=== PATIENT | female | born 1995 | race Caucasian/White ===

== ENCOUNTER 2020-02-28 02:57 | Observation (INO) | payer OTHER, SELFPAY ==
--- NOTE | 2020-02-28 08:00 | PM.OBTRLD ---
OB - Triage/Final Diagnosis Final Diagnosis (1) False labor after 37 completed weeks of gestation: Code(s): O47.1 - False labor at or after 37 completed weeks of gestation Status: Acute
== END 2020-02-28 06:06 | disposition home or self-care (01) ==
PROVIDERS: Admitting Provider Obstetrics & Gynecology; Visit Provider Obstetrics & Gynecology
DX: O47.1 False labor at or after 37 completed weeks of gestation (principal); Z3A.37 37 weeks gestation of pregnancy
CPT/HCPCS: G0378; G0379

== ENCOUNTER 2020-03-13 11:47 | Inpatient (IN) | payer OTHER, SELFPAY ==
[2020-03-13] VITALS (126 sets, daily range): BP systolic 82–121; BP diastolic 37–92; PULSE 39–119; RESP 16; TEMP 36–36.7; O2SAT 79–100; BMI 30.4
[2020-03-13 12:36] LABS: Basophils Percent Auto 0.2 % (0.2-1.2); Eosinophils Percent Auto 0.7 % (0-4.4); Hematocrit 28.7 % (37.0-47.0); Hemoglobin 8.8 g/dL (12.0-15.0); Immature Granulocyte Absolute 0.06 K/mm3 (0.00-0.031); Lymphocytes Percent Auto 24.6 % (18.3-44.2); Mean Corpuscular HGB Conc 30.7 g/dl (32-36); Mean Corpuscular Hemoglobin 23.5 pg (26-34); Mean Corpuscular Volume 76.5 fl (80-100); Mean Platelet Volume 10.5 fl (7.4-10.4); Monocytes Absolute Auto 0.4 K/mm3 (0.1-0.6); Monocytes Percent Auto 5.7 % (2.6-8.5); Neutrophils Absolute Auto 4.1 K/mm3 (1.3-6.7); Neutrophils Percent Auto 67.8 % (45.5-73.1); Nucleated Red Blood Cells Perc 0.3 % (0.0-0.2); Platelet Count Result 236 k/mm3 (150-375); Red Blood Count 3.75 M/mm3 (4.2-5.4); Red Cell Distribution Width 15.4 % (11.5-14.5); White Blood Count 6.1 K/mm3 (4.5-10.0)
[2020-03-13] MEDS: AMPICILLIN 2 GM/NS 100 ML 2 GM/100 ML BAG IVPB (12:47)
[2020-03-13] MEDS: LACTATED RINGERS 1,000 ML 125 ML IV CONT ×2 (12:48→15:04)
--- NOTE | 2020-03-13 13:03 | LDADM ---
This patient, Debbie Mathew, was admitted to Labor/Delivery/Recovery 106 on 03/13/20 at 11:47. Plans for labor, pain management and were discussed with patient. Patient/family oriented to hospital policies and general routines including ID bracelet, bed and alarms, visiting hours, pain management, procedures, bathroom and other care routines, personal items, smoking policy, room service/diet and guest tray routines, infant security routines, and visiting hours. Patient/Family are encouraged to report perceived risks to care and to ask questions if they do not understand what they are told or what they should do. See OBIX for further documentation.
--- NOTE | 2020-03-13 13:32 | WPDANESEPP ---
Anes - Eval Pre Procedure Procedure: labor epidural Date/Time: 03/13/20 13:32 Surgeon: Graciela Preop Diagnosis: Pain During Labor Pre Op Diagnosis: leaking Patient Data Age: 24 Gender: F Height: 5 ft 4 in Weight: 80.45 kg Last Vital Signs Temp 36.3 C L 03/13/20 12:15 Allergies Allergy/AdvReac Type Severity Reaction Status Date / Time No Known Allergies Allergy Verified 02/14/20 15:50 Home Medications Medication Instructions Recorded Confirmed Type PNV cmb#95-ferrous fumarate-FA 1 tablet PO DAILY 02/14/20 02/14/20 History [] famotidine 20 mg PO BID 02/14/20 02/14/20 History ferrous sulfate 325 mg PO QID 02/14/20 02/14/20 History Laboratory Tests 03/13/20 03/13/20 12:18 12:18 WBC 6.1 K/mm3 K/mm3 (4.5-10.0) RBC 3.75 M/mm3 L M/mm3 (4.2-5.4) Hgb 8.8 g/dL L g/dL (12.0-15.0) Hct 28.7 % L % (37.0-47.0) MCV 76.5 fl L fl (80-100) MCH 23.5 pg L pg (26-34) MCHC 30.7 g/dl L g/dl (32-36) RDW 15.4 % H % (11.5-14.5) Plt Count 236 k/mm3 k/mm3 (150-375) MPV 10.5 fl H fl (7.4-10.4) Immature Gran % (Auto) 1.0 % H % (0-0.5) Neut % (Auto) 67.8 % % (45.5-73.1) Lymph % (Auto) 24.6 % % (18.3-44.2) [place] % (Auto) 5.7 % % (2.6-8.5) Eos % (Auto) 0.7 % % (0-4.4) Baso % (Auto) 0.2 % % (0.2-1.2) Lymph # (Auto) 1.50 K/mm3 K/mm3 (0.9-3.2) [place] # (Auto) 0.4 K/mm3 K/mm3 (0.1-0.6) Eos # (Auto) 0.0 K/mm3 K/mm3 (0-0.3) Baso # (Auto) 0.0 K/mm3 K/mm3 (0.0-0.1) Abs Immat Gran (auto) 0.06 K/mm3 H K/mm3 (0.00-0.031) Absolute Neuts (auto) 4.1 K/mm3 K/mm3 (1.3-6.7) Absolute Nucleated RBC 0.0 K/mm3 K/mm3 (0.0-0.012) Nucleated RBC % 0.3 % H % (0.0-0.2) RPR Pending Patient hx anesthesia problems: none Family hx anesthesia problems: none [facility] Past Medical History Medical History (Updated 03/13/20 @ 13:34 by Anibal Shannon CRNA) Obese Family History Family History Father Diabetes mellitus Social History Social History Smoking status: Never smoker Second hand tobacco smoke exposure: No Substance use: never Spiritual care concerns: No Exam Day of Procedure 03/13/20 13:32 Patient weight: obese Heart: regular rate and rhythm Lungs: clear to auscultation and normal air movement Airway: Mallampati scale class II Neurological: alert and oriented
--- NOTE | 2020-03-13 14:22 | PM.IMHP ---
H&P: HPI History of Present Illness Date/Time: 03/13/20 14:22 Chief complaint: leaking Narrative: Debbie Mathew is a 24 y/o HF, , with pmhx MTHFR and GBS presents at 39 weeks and 4 days with spontaneous rupture of membranes and spontaneous onset of labor 3cm dilated Review of Systems Review of Systems: All systems reviewed & are unremarkable except as noted in HPI and below Constitutional: Constitutional: Reports no additional constitutional complaints Eyes: Eyes: Reports no additional eye complaints ENT: Reports system reviewed and no additional complaints, except as documented Cardiovascular: Cardiovascular: Reports no additional cardiovascular complaints Respiratory: Respiratory: Reports no additional respiratory complaints Gastrointestinal: Gastrointestinal: Reports no additional gastrointestinal complaints Genitourinary: Genitourinary: Reports no additional female genitourinary complaints Musculoskeletal: Musculoskeletal: Reports no additional musculoskeletal complaints Integumentary/Breasts: Skin/Breast: Reports system reviewed and no additional complaints, except as docu Neurologic: Reports system reviewed and no additional complaints, except as documented Psychiatric: Psychiatric: Reports no additional psychiatric complaints Endocrine: Endocrine: Reports no additional endocrine complaints Hematologic/Lymphatic: Hematologic/Lymphatic: Reports no additional hematologic/lymphatic complaints Allergic/Immunologic: Allergic/Immunologic: Reports no additional allergic/immunologic complaints PMFSH Past Medical History Medical History (Updated 03/13/20 @ 14:44 by Nimesh Owens MD) Anemia affecting GBS (group B Streptococcus carrier), +RV culture, currently Heterozygous MTHFR mutation [id number] Obese Rubella non-immune status, antepartum Vaginal delivery 03/18/2016 8-14 male 10/01/2018 8-9 male Family History Family History Father Diabetes mellitus Social History Social History (Updated 03/13/20 @ 14:46 by Nimesh Owens MD) Smoking status: Never smoker Second hand tobacco smoke exposure: No Alcohol intake: never Substance use: never Substance use type: does not use Living arrangements: with family Occupation/Education: occupation 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; 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; Gender identity (if verbalized by the patient): Female Sexual Orientation (if Verbalized by the Patient): Straight or Heterosexual Spiritual care concerns: No Agree to blood products: Yes Meds Home Medications and Allergies Home Medications Medication Instructions Recorded Confirmed Type PNV cmb#95-ferrous fumarate-FA 1 tablet PO DAILY 02/14/20 02/14/20 History [] famotidine 20 mg PO BID 02/14/20 02/14/20 History ferrous sulfate 325 mg PO QID 02/14/20 02/14/20 History Allergies Allergy/AdvReac Type Severity Reaction Status Date / Time No Known Allergies Allergy Verified 02/14/20 15:50 Vital Signs Vital Signs - 24 hr 03/13/20 12:15 03/13/20 13:36 03/13/20 13:38 Temperature 97.3 F L Pulse Rate 85 81 Blood Pressure 116/63 112/70 Pulse Oximetry 99 03/13/20 13:39 03/13/20 13:40 03/13/20 13:41 Temperature Pulse Rate 92 77 Blood Pressure 116/57 L 116/70 Pulse Oximetry 100 03/13/20 13:42 03/13/20 13:44 03/13/20 13:45 Temperature Pulse Rate 86 84 84 Blood Pressure 117/67 88/55 L 113/62 Pulse Oximetry 03/13/20 13:46 03/13/20 13:48 03/13/20 13:50 Temperature 97.4 F L Pulse Rate 90 93 Blood Pressure 108/59 L 113/51 L Pulse Oximetry 99 03/13/20 13:51 03/13/20 13:52 03/13/20 13:54 Temperature Pulse Rate 84 114 H 85 Blood Pressure 106/60 93/54 L 105/37 L Pulse Oximetry 100 03/13/20 13:56 03/13/20 13:58 03/13/20 14:00 Temperature Pulse Rate 89 88 97 Blood Pressure 106/55 L 116/7
--- NOTE | 2020-03-13 14:49 | WPDHPUPDATE1 ---
History and Physical Update Update Date/Time: 03/13/20 14:49 History and Physical has been reviewed, including an updated exam of the patient. There are NO changes in the patient's condition. Risks, benefits, and alternatives have been discussed and questions answered. Patient agrees to proceed with procedure. 24 y/o F, , with pmhx MTHFR and GBS presents for SROM and SOOL at 39 weeks and 4 days
--- NOTE | 2020-03-13 14:50 | WPDOBADMIT ---
Obstetrics - Admit Note Admission Note: record reviewed. No pertinent additions to the history and/or any subsequent changes in the physical findings that are not consistent with the expected course of the were found. Additions to the history and/or subsequent changes in the physical findings follow. None. 24 y/o F, , with pmhx MTHFR and GBS presents for SROM and SOOL at 39weeks and 4days FHT cat 1 cervix 3 cm
--- NOTE | 2020-03-13 14:51 | PM.OBPNLAB ---
Pain Control Date/time seen: 03/13/20 14:51 Pain control: tolerating well and epidural Pelvic Exam Dilation (cm): 3 Effacement (%): 75 station: -2 Amniotic membrane status: Ruptured Comments: FSE and IUPC placed without difficulty Contractions Monitor mode: External Contraction frequency: 10 Contraction duration: 40 Contraction pattern: Irregular Contraction intensity: Mild Status status: Category l Assessment and Plan Assessment: other (LATENT PHASE) Plan: begin patient augmentation
[2020-03-13] MEDS: OXYTOCIN 30 UNITS/NS 500 ML 30 UNITS/500 ML BAG IV CONT (15:02)
[2020-03-13] MEDS: AMPICILLIN 1 GM/NS 50 ML 1 GM/50 ML BAG IVPB (17:01)
--- NOTE | 2020-03-13 20:01 | PM.OBPNLAB ---
Pain Control Date/time seen: 03/13/20 18:01 Pain control: tolerating well and epidural Pelvic Exam Dilation (cm): 8 Effacement (%): 100 station: 0 Amniotic membrane status: Ruptured Contractions Monitor mode: Internal Contraction frequency: 2 Contraction pattern: Regular Contraction phase: Contraction Contraction intensity: Strong/Firm Status status: Category l Assessment and Plan Pitocin rate (mU/min): 14 Assessment: active labor Plan: continuous present management
--- NOTE | 2020-03-13 20:02 | PM.OBPRVD ---
OB - Delivery Note Procedure Delivery date: 03/13/20 Procedure: NSVVD viable female and placenta Intrapartal events: None Induction method: none Delivery augmentation: pitocin Delivery monitor: internal FHT and internal uterine Route of delivery: Laceration description: Perineal - 1st Degree Delivery repair: vicryl Specimen: Yes Estimated blood loss (mL): 150 Anesthesia type: Epidural Disposition: floor Complications: none Narrative: Patient placed in delivery position perineum prepped normal spontaneous vertex vaginal delivery over intact perineum vertex was delivered without difficulty anterior shoulder delivered easily infant was delivered and placed on maternal abdomen cord clamped and cut having handed to the nursery nurse in attendance spontaneous respirations and cry no gross abnormalities initial examination cord gases cord blood obtained placenta was then delivered intact three-vessel cord the uterus contracted well with Pitocin given intravenously blood clots removed from the intrauterine cavity first-degree perineal laceration was repaired interrupted 2 0 Vicryl deep 3 0 Vicryl as interrupted superficial and perineal body mom and baby in stable condition Baby Date of : 03/13/20 Time of : 19:41 Weeks of gestation at delivery: 40 Infant gender: Female Weight (pounds): 7 Weight (ounces): 11 presentation: vertex position: Left Occiput Transverse Placenta delivery description: Spontaneous and Normal Configuration cord vessel description: 3 Vessels score one minute: 8 score five minutes: 9
--- NOTE | 2020-03-13 20:07 | PM.OBDSVD ---
DS: Admitting Diagnosis Admitting Diagnosis Admitting Diagnosis: leaking term SROM SOOL GBS+ DS: Discharge Diagnosis Discharge Diagnosis (1) Term delivered: Code(s): O80 - Encounter for full-term uncomplicated delivery Status: Acute (2) Rubella non-immune status, antepartum: Code(s): O99.89 - Other specified diseases and conditions complicating , childbirth and the puerperium; Z28.3 - Underimmunization status Status: Acute (3) Anemia affecting : Code(s): O99.019 - Anemia complicating , unspecified trimester Status: Acute (4) Spontaneous onset of labor: Status: Acute (5) GBS (group B Streptococcus carrier), +RV culture, currently : Code(s): O99.820 - Streptococcus B carrier state complicating Status: Acute (6) Heterozygous MTHFR mutation [id number]: Code(s): E72.12 - Methylenetetrahydrofolate reductase deficiency Status: Acute OB - DS: Summary Hospital Course Time spent discussing smoking cessation with patient: 3 to 10 minutes OB Procedures : Ultrasound OB Procedures Intrapartum: Spontaneous Vag Delivery and GBS prophylaxis OB Procedures: : Rubella lg Peripartum Data Delivery Method: Natural Vaginal Laceration description: Perineal - 1st Degree complications: none 1: Gender: Female Disposition of : home Status at Discharge Functional status at discharge: independent ambulation Overall status at discharge: patient is back to baseline Time Spent with Patient Time attestation: Total time spent providing and/or coordinating discharge services: Time spent: Less than 30 minutes Exam Const: General: comfortable, no acute distress, alert and awake Orientation/consciousness: patient oriented x3 Limitations: no limitations Chest: Breast/axilla inspection: normal inspection of the breasts Breast/axilla palpation: normal palpation of the breasts Resp: Effort & Inspection: normal respiratory effort Auscultation: clear to auscultation bilaterally Cardio: Rate: regular rate GI: GI Palp: Yes Soft to palpation Percussion: Yes normal to percussion Auscultation: normal bowel sounds : General: Yes bladder normal to inspection and Yes no CVA tenderness Psych: Appearance: grossly normal Mental Status: mental status grossly normal Affect: normal affect Attitude: cooperative Thought content: Yes Normal thought content present Judgement: Good judgement present (Psych) DS: Data Data Completed and Pending Labs on day of discharge: Labs from last 24 hours 03/13/20 03/13/20 03/13/20 12:18 12:18 12:18 WBC 6.1 RBC 3.75 L Hgb 8.8 L Hct 28.7 L MCV 76.5 L MCH 23.5 L MCHC 30.7 L RDW 15.4 H Plt Count 236 MPV 10.5 H Immature Gran % (Auto) 1.0 H Neut % (Auto) 67.8 Lymph % (Auto) 24.6 [place] % (Auto) 5.7 Eos % (Auto) 0.7 Baso % (Auto) 0.2 Lymph # (Auto) 1.50 [place] # (Auto) 0.4 Eos # (Auto) 0.0 Baso # (Auto) 0.0 Abs Immat Gran (auto) 0.06 H Absolute Neuts (auto) 4.1 Absolute Nucleated RBC 0.0 Nucleated RBC % 0.3 H RPR Pending Blood Type A Positive Antibody Screen Negative Discharge Plan Discharge Attending physician on discharge: Nimesh Owens Discharging Clinician: Nimesh Owens Anticipated Discharge Date/Time: 03/15/20 20:10 Patient Disposition: Home, Self-Care Activity: may shower, no straining and may drive after 2 weeks Diet: as tolerated and regular Wound Care Instructions: follow printed instructions Discharge Instructions: routine Patient Instructions: Antibiotic Form Stand Alone Forms: General Discharge Information Follow-up/Referrals: Nimesh Owens MD [Physician] - Discharge Medications: New ibuprofen 600 mg Tablet 600 mg PO Q6H Qty: 90 RF: 0 Continued famotidine 20
[2020-03-13] MEDS: OXYTOCIN 30 UNITS/NS 500 ML 30 UNITS/500 ML BAG 125 UNITS IV CONT (20:15)
[2020-03-13] MEDS: IBUPROFEN 600 MG TABLET PO (21:17)
[2020-03-13] MEDS: WITCH HAZEL 40 PADS 1 PAD TOPICAL (21:17)
[2020-03-13] MEDS: BENZOCAINE 20% AER SPR (*SP) 56 GM CAN 1 SPRAY TOPICAL (21:18)
--- NOTE | 2020-03-13 22:13 | PC.NURSE ---
Addendum entered by Carmen Dong RN 03/14/20 00:38: Patient transferred to post room #284 via wheelchair. Original Note: Patient transferred to post room #284 via stretcher. Support person present. Oriented to unit, room, information board, rooming in, admission packet and security measures. Patient verbalizes understanding.
[2020-03-14] MEDS: IBUPROFEN 600 MG TABLET PO ×3 (02:53→16:30)
[2020-03-14 04:53] LABS: Hematocrit 25.5 % (37.0-47.0); Hemoglobin 7.9 g/dL (12.0-15.0)
--- NOTE | 2020-03-14 06:57 | P.PNOB_ITS ---
OB - PN: Subj Subjective Date/time seen: 03/14/20 06:57 Interval history: ppd#1 s/p nsvvd female Patient comments: no complaints, pain well controlled, tolerating diet and flatus present baby status: doing well and nursing well [place] feeding status: exclusively breast feeding OB - PN: Obj Data Labs CBC & Chem 7: 03/14/20 04:44 Labs: Laboratory Results - last 24 hr 03/13/20 03/13/20 03/14/20 12:18 12:18 04:44 WBC 6.1 RBC 3.75 L Hgb 8.8 L 7.9 L Hct 28.7 L 25.5 L MCV 76.5 L MCH 23.5 L MCHC 30.7 L RDW 15.4 H Plt Count 236 MPV 10.5 H Immature Gran % (Auto) 1.0 H Neut % (Auto) 67.8 Lymph % (Auto) 24.6 [place] % (Auto) 5.7 Eos % (Auto) 0.7 Baso % (Auto) 0.2 Lymph # (Auto) 1.50 [place] # (Auto) 0.4 Eos # (Auto) 0.0 Baso # (Auto) 0.0 Abs Immat Gran (auto) 0.06 H Absolute Neuts (auto) 4.1 Absolute Nucleated RBC 0.0 Nucleated RBC % 0.3 H Blood Type A Positive Antibody Screen Negative OB - PN A/P Assessment and Plan (1) Term delivered: Code(s): O80 - Encounter for full-term uncomplicated delivery Status: Acute (2) Anemia affecting : Code(s): O99.019 - Anemia complicating , unspecified trimester Status: Acute (3) GBS (group B Streptococcus carrier), +RV culture, currently : Code(s): O99.820 - Streptococcus B carrier state complicating Status: Acute (4) Heterozygous MTHFR mutation [id number]: Code(s): E72.12 - Methylenetetrahydrofolate reductase deficiency Status: Acute Time Spent With Patient Time: Total time spent is greater than 50% in coordination of care (as docum ented) at patient's floor/unit and/or counseling patient:15 Review of Systems Review of Systems: All systems reviewed & are unremarkable except as noted in HPI and below Exam Const: General: comfortable, no acute distress, alert and awake Orientation/consciousness: patient oriented x3 Chest: Breast/axilla inspection: normal inspection of the breasts Resp: Effort & Inspection: normal respiratory effort Auscultation: clear to auscultation bilaterally Cardio: Rate: regular rate GI: Auscultation: normal bowel sounds : General: Yes bladder normal to inspection and Yes no CVA tenderness Bimanual exam- vagina & uterus: consistency normal and non-tender Psych: Appearance: grossly normal Mental Status: mental status grossly normal Affect: normal affect Attitude: cooperative Judgement: Good judgement present (Psych)
--- NOTE | 2020-03-14 07:00 | PM.OBDSVD ---
DS: Admitting Diagnosis Admitting Diagnosis Admitting Diagnosis: leaking term spontaneous onset of labor spontaneous rupture of membranes GBS+ anemia MTHFR rubella non immune DS: Discharge Diagnosis Discharge Diagnosis (1) Term delivered: Code(s): O80 - Encounter for full-term uncomplicated delivery Status: Acute (2) Rubella non-immune status, antepartum: Code(s): O99.89 - Other specified diseases and conditions complicating , childbirth and the puerperium; Z28.3 - Underimmunization status Status: Acute (3) Anemia affecting : Code(s): O99.019 - Anemia complicating , unspecified trimester Status: Acute (4) Spontaneous onset of labor: Status: Acute (5) Term : Code(s): Z34.90 - Encounter for supervision of normal , unspecified, unspecified trimester Status: Acute (6) GBS (group B Streptococcus carrier), +RV culture, currently : Code(s): O99.820 - Streptococcus B carrier state complicating Status: Acute (7) Heterozygous MTHFR mutation [id number]: Code(s): E72.12 - Methylenetetrahydrofolate reductase deficiency Status: Acute OB - DS: Summary Hospital Course Time spent discussing smoking cessation with patient: 3 to 10 minutes OB Procedures : Ultrasound OB Procedures Intrapartum: Spontaneous Vag Delivery OB Procedures: : None Peripartum Data Delivery Method: Natural Vaginal Laceration description: Perineal - 1st Degree Episiotomy description: None complications: none [place] 1: Gender: Female Disposition of : home Status at Discharge Functional status at discharge: independent ambulation Overall status at discharge: patient is progressing back to baseline Time Spent with Patient Time attestation: Total time spent providing and/or coordinating discharge services: Time spent: Less than 30 minutes Exam Const: General: comfortable, no acute distress, alert and awake Orientation/consciousness: patient oriented x3 Limitations: no limitations Chest: Breast/axilla inspection: normal inspection of the breasts Breast/axilla palpation: normal palpation of the breasts Resp: Effort & Inspection: normal respiratory effort Auscultation: clear to auscultation bilaterally Cardio: Rate: regular rate GI: GI Palp: Yes Soft to palpation : General: Yes bladder normal to inspection and Yes no CVA tenderness Psych: Appearance: grossly normal Mental Status: mental status grossly normal Affect: normal affect Attitude: cooperative Thought content: Yes Normal thought content present Judgement: Good judgement present (Psych) DS: Data Data Completed and Pending Pending studies at discharge: Pending at discharge 03/13/20 19:44 Surgical [PTH] Routine Labs on day of discharge: Labs from last 24 hours 03/14/20 03/13/20 03/13/20 04:44 12:18 12:18 WBC RBC Hgb 7.9 L Hct 25.5 L MCV MCH MCHC RDW Plt Count MPV Immature Gran % (Auto) Neut % (Auto) Lymph % (Auto) [place] % (Auto) Eos % (Auto) Baso % (Auto) Lymph # (Auto) [place] # (Auto) Eos # (Auto) Baso # (Auto) Abs Immat Gran (auto) Absolute Neuts (auto) Absolute Nucleated RBC Nucleated RBC % RPR Pending Blood Type A Positive Antibody Screen Negative 03/13/20 12:18 WBC 6.1 RBC 3.75 L Hgb 8.8 L Hct 28.7 L MCV 76.5 L MCH 23.5 L MCHC 30.7 L RDW 15.4 H Plt Count 236 MPV 10.5 H Immature Gran % (Auto) 1.0 H Neut % (Auto) 67.8 Lymph % (Auto) 24.6 [place] % (Auto) 5.7 Eos % (Auto) 0.7 Baso % (Auto) 0.2 Lymph # (Auto) 1.50 [place] # (Auto) 0.4 Eos # (Auto) 0.0 Baso # (Auto) 0.0 Abs Immat Gran (auto) 0.06 H Absolute Neuts (auto) 4.1 Absolute Nucleated RBC 0.0 Nucleated RBC % 0.3 H RPR Blood Type Antibody Screen Discharge [place]
[2020-03-14] MEDS: DOCUSATE SODIUM 100 MG CAPSULE PO ×2 (07:10→16:29)
[2020-03-14] MEDS: POLYSACCHARIDE IRON COMPLEX 150 MG CAPSULE PO ×2 (07:10→16:30)
[2020-03-14] MEDS: MULTIVIT/MIN/PREN/FOL AC/IRON TABLET 1 TAB PO (07:10)
[2020-03-14] MEDS: WITCH HAZEL 40 PADS 1 PAD TOPICAL (07:11)
[2020-03-14 07:44] VITALS: BP 124/84; PULSE 76; RESP 18; TEMP 36.4
--- NOTE | 2020-03-14 07:58 | WPDANLDPN2 ---
Anes-Prog Note L&D Date/Time: 03/14/20 07:58 Comfortable throughout: labor and delivery Neuraxial method: epidural Epidural/Spinal procedure site: clean & non-tender Neuro status: Neuro function grossly intact. Cardiovascular status: normal Respiratory status: normal Airway patency: baseline Mental status: baseline Post-Op hydration status: normal Vital Signs: Last Vital Signs Temp 97.6 F 03/14/20 07:44 Pulse 76 03/14/20 07:44 Resp 18 03/14/20 07:44 BP 124/84 03/14/20 07:44 Pulse Ox 100 03/13/20 22:15 I/O: Intake & Output 03/13/20 03/13/20 03/14/20 15:59 23:59 07:59 Intake Total 1100 Output Total 300 Balance 1100 -300 Post-procedural complaints: none Patient feedback: Patient satisfied with anesthetic care.
[2020-03-14 08:50] LABS: Rapid Plasma Reagin Non-Reactive (NonReactive)
--- NOTE | 2020-03-14 14:20 | PC.NURSE ---
Upon entering mother is bottle feeding reporting infant would not maintain latch to right breast. Offered to assist to breast at this time. Reviewed infant feeding cues, frequencies, duration of feedings, feeding elimination flow sheet, and signs of adequate intake. Demonstrated stimulation techniques to wake infant for feeding. Assisted with to breast. Reviewed positioning/alignment in cross cradle, holding breast in U hold and guided asymmetrical latch on. Discussed rational for each. Mother reports she has been using cradle positioning for latch. was able to latch correctly. nursed eagerly, with steady draws and frequent swallowing noted. Reviewed signs of a correct latch, effective nursing and suck swallow ratio. was able to maintain latch without discomfort to mother for aprox. 5 minutes, before releasing latch. Infant was bottle fed 25 mls before . Nipple care reviewed. Mother reports she had less tenderness with feedings. Requested mother to call out for RN assistance each feeding if she is unable to latch infant for feeding or she has discomfort with nursing. Instructed feeding should be initiated three hours from start of last feeding or if feeding cues are noted before. Mother voiced understanding of information shared.
[2020-03-14 19:45] VITALS: BP 96/59; PULSE 73; RESP 16; TEMP 36.6; O2SAT 100
[2020-03-15] MEDS: IBUPROFEN 600 MG TABLET PO ×3 (04:55→14:19)
[2020-03-15 07:55] VITALS: BP 108/60; PULSE 71; RESP 16; TEMP 37.2; O2SAT 99
--- NOTE | 2020-03-15 08:18 | PM.OBPNVD ---
OB - PN: Subj Subjective Date/time seen: 03/15/20 08:18 Interval history: ppd#1 s/p nsvvd female Patient comments: no complaints, pain well controlled and flatus present [place] baby status: doing well and nursing well [place] feeding status: exclusively breast feeding OB - PN: Obj Data Labs CBC & Chem 7: 03/14/20 04:44 Labs: Laboratory Results - last 24 hr 03/13/20 12:18 RPR Non-reactive OB - PN A/P Assessment and Plan (1) Term delivered: Code(s): O80 - Encounter for full-term uncomplicated delivery Status: Acute (2) Anemia affecting : Code(s): O99.019 - Anemia complicating , unspecified trimester Status: Acute (3) Spontaneous onset of labor: Status: Acute (4) GBS (group B Streptococcus carrier), +RV culture, currently : Code(s): O99.820 - Streptococcus B carrier state complicating Status: Acute (5) 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: Code(s): E72.12 - Methylenetetrahydrofolate reductase deficiency Status: Acute (6) Rubella non-immune status, antepartum: Code(s): O99.89 - Other specified diseases and conditions complicating , childbirth and the puerperium; Z28.3 - Underimmunization status Status: Acute Time Spent With Patient Time: Total time spent is greater than 50% in coordination of care (as documented) at patient's floor/unit and/or counseling patient: Review of Systems Review of Systems: All systems reviewed & are unremarkable except as noted in HPI and below Exam Const: General: comfortable Chest: Breast/axilla inspection: normal inspection of the breasts Resp: Effort & Inspection: normal respiratory effort Cardio: Rate: regular rate GI: Auscultation: normal bowel sounds : General: Yes bladder normal to inspection Psych: Appearance: grossly normal Affect: normal affect Attitude: cooperative
[2020-03-15] MEDS: MULTIVIT/MIN/PREN/FOL AC/IRON TABLET 1 TAB PO (10:13)
[2020-03-15] MEDS: POLYSACCHARIDE IRON COMPLEX 150 MG CAPSULE PO (10:13)
[2020-03-15] MEDS: DOCUSATE SODIUM 100 MG CAPSULE PO (10:14)
--- NOTE | 2020-03-15 13:00 | PC.NURSE ---
Consult with pt., mother states she has decided to formula feed. Reviewed transition to breast milk and engorgement/relief. Mother has no further questions at this time.
[2020-03-16 10:23] VITALS: BP 106/60; PULSE 71; RESP 20; TEMP 36.8; O2SAT 100
== END 2020-03-15 15:43 | disposition home or self-care (01) | DRG 560 ==
LOC: ANHLDR 20:12 → ANHOB2 22:20
PROVIDERS: Admitting Provider Obstetrics & Gynecology; Visit Provider Obstetrics & Gynecology
DX: O62.3 Precipitate labor (principal); Z37.0 Single live birth; Z3A.39 39 weeks gestation of pregnancy; O99.824 Streptococcus B carrier state complicating childbirth; O70.0 First degree perineal laceration during delivery; O99.02 Anemia complicating childbirth; D64.9 Anemia, unspecified; O99.214 Obesity complicating childbirth; E66.9 Obesity, unspecified; O99.284 Endocrine, nutritional and metabolic diseases complicating childbirth; E72.12 Methylenetetrahydrofolate reductase deficiency
CPT/HCPCS: 36415; 85014; 85018; 85025; 86592; 86850; 86900; 86901; 88307; A9270; J0290; J2590; J2795; J7120

== ENCOUNTER 2021-07-03 15:41 | Emergency (ER) | payer OTHER, SELFPAY ==
[2021-07-03 15:42] VITALS: BP 110/66; PULSE 77; RESP 20; TEMP 36.4; O2SAT 99
[2021-07-03 17:30] VITALS: BP 107/65; PULSE 71; RESP 14; O2SAT 99
--- NOTE | 2021-07-03 21:07 | ED.GENADULT ---
HPI - General Adult General Chief complaint: Ear Stated complaint: Cant hear out L ear Time Seen by Provider: 07/03/21 21:04 Source: patient Mode of arrival: ambulatory Limitations: no limitations History of Present Illness HPI narrative: Pt presents for evaluation of left ear pain. She states that three days ago she was cleaning her left ear with a Q tip. The following day she woke up in pain. She developed hearing loss on the left with associated ringing. She cleaned her left ear out with hot water and 1/2 H2O2. She was still unable to hear thereafter. No drainage from the left ear. She reports chills without fever. She now has 8/10 pain in the affected ear. Pain radiates into the left preauricular region and mandible. Related Data Home Medications Medication Instructions Recorded Confirmed PNV cmb#95-ferrous fumarate-FA 1 tablet PO DAILY 02/14/20 02/14/20 [] famotidine 20 mg PO BID 02/14/20 02/14/20 ferrous sulfate 325 mg PO QID 02/14/20 02/14/20 Allergies Allergy/AdvReac Type Severity Reaction Status Date / Time No Known Allergies Allergy Verified 02/14/20 15:50 Review of Systems Review of Systems: CONSTITUTIONAL: Denies fever, chills, or sweats. EYES: Denies visual changes, redness, or discharge. ENT: Reports left ear pain, tinnitus, hearing loss. Denies drainage from left ear CARDIOVASCULAR: Denies chest pain, palpitations, or edema. RESPIRATORY: Denies cough or dyspnea. GASTROINTESTINAL: Denies abdominal pain, nausea, vomiting, or diarrhea. GENITOURINARY: Denies dysuria or hematuria. SKIN: Denies rash or itching. MUSCULOSKELETAL: Denies back pain, joint pain, or myalgia. NEUROLOGIC: Denies headache, numbness, dizziness, or weakness. PSYCHIATRIC: Denies anxiety or depression. [facility] Past Medical History Medical History (Updated 07/03/21 @ 21:19 by Adam Aden, [facility], ) Anemia affecting GBS (group B Streptococcus carrier), +RV culture, currently Heterozygous MTHFR mutation [id number] Obese Rubella non-immune status, antepartum Vaginal delivery 03/18/2016 8-14 male 10/01/2018 8-9 male Surgical History Surgical History No pertinent past surgical history Family History Family History Father Diabetes mellitus Mother No pertinent past medical history Social History Social History Smoking status: Never smoker Second hand tobacco smoke exposure: No Alcohol intake: never Substance use: never Substance use type: does not use 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 HEAD: Normocephalic, atraumatic. EYES: PERRLA and EOMI. ENT: Nares clear, no rhinorrhea or epistaxis. Mucous membranes moist. Oropharynx without tonsillar hypertrophy exudate or other lesions. Left ear canal is edematous and erythematous. Tympanic membrane appears perforated NECK: Supple. No adenopathy or masses. No carotid bruits or JVD CHEST: Clear to auscultation. No respiratory distress. No wheezes rales or rhonchi HEART: Regular rate and rhythm. No murmur heard. Normal peripheral pulses. ABDOMEN: Soft, nontender, nondistended, normal active bowel sounds. EXTREMITIES: Normal range of motion. No edema. SKIN: Warm, dry, no rash. NEURO: No focal deficits. Alert and oriented x3. PSYCH: Normal mood and affect. Course Course Emergency Course: Is a 25-year-old female who presented with complaints of left ear pain following routine ear care with Q tip. She had swelling noted to the left ear c
[2021-07-03 21:12] VITALS: BP 126/71; PULSE 88; RESP 16; O2SAT 100
[2021-07-03] MEDS: KETOROLAC (*BKC) 60 MG/2 ML VIAL IM (21:33)
== END 2021-07-03 21:49 | disposition home or self-care (01) ==
LOC: ANHED 21:29
PROVIDERS: Emergency Provider Nurse Practitioner
DX: H60.92 Unspecified otitis externa, left ear (principal); H72.92 Unspecified perforation of tympanic membrane, left ear
CPT/HCPCS: 96372; 99283; J1885

== ENCOUNTER 2022-04-16 17:29 | Emergency (ER) | payer OTHER, SELFPAY ==
[2022-04-16 17:45] VITALS: BP 111/68; PULSE 106; RESP 18; TEMP 38.2; O2SAT 100
--- NOTE | 2022-04-16 19:04 | ED.URI ---
HPI - URI/Sore Throat General Chief Complaint: Upper Respiratory Infection Stated Complaint: strep test Time Seen by Provider: 04/16/22 19:00 Source: patient, RN notes reviewed and old records reviewed Mode of arrival: ambulatory Limitations: no limitations History of Present Illness HPI Narrative: both children strep and ear infection, sore throat feverish cough MD elicited complaint: fever, cough and sore throat Related Data Allergies Allergy/AdvReac Type Severity Reaction Status Date / Time No Known Allergies Allergy Verified 04/16/22 18:53 Review of Systems Review of Systems: CONSTITUTIONAL: Denies malaise, chills, sweats, or fever. EYES: Denies visual changes, redness, or discharge. ENT: Reports rhinorrhea, congestion, sinus pain, otalgia and sore throat. CARDIOVASCULAR: Denies chest pain, palpitations, or edema. RESPIRATORY: Reports cough.? Denies dyspnea. GASTROINTESTINAL: Denies abdominal pain, nausea, vomiting, diarrhea SKIN: Denies rash or itching. MUSCULOSKELETAL: Denies myalgia. NEUROLOGIC: Denies headache. All systems reviewed & are unremarkable except as noted in HPI and below PMFSH Past Medical History Medical History Anemia affecting GBS (group B Streptococcus carrier), +RV culture, currently Heterozygous MTHFR mutation [id number] Obese Rubella non-immune status, antepartum Vaginal delivery 03/18/2016 8-14 male 10/01/2018 8-9 male Surgical History Surgical History No pertinent past surgical history Family History Family History Father Diabetes mellitus Mother No pertinent past medical history Social History Social History Smoking status: Never smoker Second hand tobacco smoke exposure: No Alcohol intake: never Substance use: never Substance use type: does not use 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 There is no relevant family history pertinent to the presenting complaint Exam Narrative: GENERAL: Well-appearing, well-nourished, and in no acute distress. HEAD: Normocephalic EYES: PERRLA, conjunctivae clear ENT: Nares clear, turbinates edematous and erythematous, clear discharge. Mucous membranes moist. TM pearly james with dull light reflex bilaterally; no tragal tenderness. Oropharynx erythematous without lesions. Tonsils not enlarged and without exudate, no drooling, no hoarseness, no trismus, uvula midline. NECK: Supple. No lymphadenopathy CHEST: Clear to auscultation, breath sounds equal. No wheezing, rhonchi, rales, or stridor. No respiratory distress, speaks in full sentences. HEART: Regular rate and rhythm. No murmur heard. SKIN: Warm, dry, no rash. NEURO: Alert and oriented x3. PSYCH: Normal mood and affect Course Course Emergency Course: Patient is aware of diagnosis, understands and agrees to treatment plan.? Anticipatory guidance given.? Patient agrees to follow-up as directed and is aware of reasons to seek care at the emergency department. Portions of this record may have been created with voice recognition software Level of Care: Express Care Visit Vital Signs Vital signs: Vital Signs Temperature 38.2 C H 04/16/22 17:45 Pulse Rate 106 H 04/16/22 17:45 Respiratory Rate 18 04/16/22 17:45 Blood Pressure 111/68 04/16/22 17:45 Pulse Oximetry 100 04/16/22 17:45 Oxygen Delivery Room Air 04/16/22 17:45 Temperature 38.2 C H 04/16/22 17:45 Pulse Rate 1
--- NOTE | 2022-04-16 19:21 | ED.URI ---
HPI - URI/Sore Throat General Chief Complaint: Upper Respiratory Infection Stated Complaint: strep test Time Seen by Provider: 04/16/22 19:00 Source: patient, RN notes reviewed and old records reviewed Mode of arrival: ambulatory Limitations: no limitations History of Present Illness HPI Narrative: 26 year old female presents to [facility] care with complaints of cough and sore throat with patient reporting that she is 6-7 weeks . Patient reports that 2 of her children have strep throat and OM and she is here to have strep test done too. Patient is febrile and has not taken any OTC medication for her fever or symptoms. MD elicited complaint: cough and sore throat Pertinent past history: other (6-7 weeks ) Onset (ago): day(s) (day 2 of symptoms) Treatments prior to arrival: none Related Data Allergies Allergy/AdvReac Type Severity Reaction Status Date / Time No Known Allergies Allergy Verified 04/16/22 18:53 Review of Systems Review of Systems: CONSTITUTIONAL: Reports malaise, chills, sweats, or fever. EYES: Denies visual changes, redness, or discharge. ENT: Reports rhinorrhea, congestion, sinus pain, otalgia and sore throat. CARDIOVASCULAR: Denies chest pain, palpitations, or edema. RESPIRATORY: Reports cough.? Denies dyspnea. GASTROINTESTINAL: Denies abdominal pain, nausea, vomiting, diarrhea SKIN: Denies rash or itching. MUSCULOSKELETAL: Denies myalgia. NEUROLOGIC: Denies headache. All systems reviewed & are unremarkable except as noted in HPI and below PMFSH Past Medical History Medical History Anemia affecting GBS (group B Streptococcus carrier), +RV culture, currently Heterozygous MTHFR mutation [id number] Obese Rubella non-immune status, antepartum Vaginal delivery 03/18/2016 8-14 male 10/01/2018 8-9 male Surgical History Surgical History No pertinent past surgical history Family History Family History Father Diabetes mellitus Mother No pertinent past medical history Social History Social History (Updated 04/19/22 @ 11:05 by Kathleen Nowak NP) Smoking status: Never smoker Second hand tobacco smoke exposure: No Alcohol intake: never Substance use: never Substance use type: does not use Living arrangements: with family 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 There is no relevant family history pertinent to the presenting complaint Exam Narrative: GENERAL: Well-appearing, well-nourished, and in no acute distress. HEAD: Normocephalic EYES: PERRLA, conjunctivae clear ENT: Nares clear, turbinates edematous and erythematous, clear discharge. Mucous membranes moist. TM pearly james with dull light reflex bilaterally; no tragal tenderness. Oropharynx erythematous without lesions. Tonsils minimally enlarged and without exudate, no drooling, no hoarseness, no trismus, uvula midline. NECK: Supple. No lymphadenopathy CHEST: Clear to auscultation, breath sounds equal. No wheezing, rhonchi, rales, or stridor. No respiratory distress, speaks in full sentences.SAO2 100% on room air HEART: Regular rate and rhythm. No murmur heard. SKIN: Warm, dry, no rash. NEURO: Alert and oriented x3. PSYCH: Normal mood and affect Course Course Emergency Course: Patient is aware of diagnosis, understands and agrees to treatment plan.? Anticipatory guidance given.? Patient agrees to follow-up as directed and is aware of reasons to seek care at the emergenc
--- NOTE | 2022-04-16 19:30 | ED.URI ---
HPI - URI/Sore Throat General Chief Complaint: Upper Respiratory Infection Stated Complaint: strep test Time Seen by Provider: 04/16/22 19:00 Source: patient, RN notes reviewed and old records reviewed Mode of arrival: ambulatory Limitations: no limitations Related Data Allergies Allergy/AdvReac Type Severity Reaction Status Date / Time No Known Allergies Allergy Verified 04/16/22 18:53 PMFSH Past Medical History Medical History Anemia affecting GBS (group B Streptococcus carrier), +RV culture, currently Heterozygous MTHFR mutation [id number] Obese Rubella non-immune status, antepartum Vaginal delivery 03/18/2016 8-14 male 10/01/2018 8-9 male Surgical History Surgical History No pertinent past surgical history Family History Family History Father Diabetes mellitus Mother No pertinent past medical history Social History Social History Smoking status: Never smoker Second hand tobacco smoke exposure: No Alcohol intake: never Substance use: never Substance use type: does not use 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; 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; Gender identity (if verbalized by the patient): Female Sexual Orientation (if Verbalized by the Patient): Straight or Heterosexual Spiritual care concerns: No Agree to blood products: Yes Course Vital Signs Vital signs: Vital Signs Temperature 38.2 C H 04/16/22 17:45 Pulse Rate 106 H 04/16/22 17:45 Respiratory Rate 18 04/16/22 17:45 Blood Pressure 111/68 04/16/22 17:45 Pulse Oximetry 100 04/16/22 17:45 Oxygen Delivery Room Air 04/16/22 17:45 Temperature 38.2 C H 04/16/22 17:45 Pulse Rate 106 H 04/16/22 17:45 Respiratory Rate 18 04/16/22 17:45 Blood Pressure 111/68 04/16/22 17:45 Pulse Oximetry 100 04/16/22 17:45 Oxygen Delivery Room Air 04/16/22 17:45 MDM - URI/Sore Throat Lab Data Labs: Strep Screen Presumptive Negative *(Reference Range: Negative)* Discharge Plan Discharge Clinical Impression: Upper respiratory infection, Pharyngitis Patient Disposition: Home, Self-Care Condition: Stable Instructions: Antibiotic Form Additional Instructions: . Take the entire course of antibiotics. Throw away your current toothbrush and begin using a new toothbrush in 48 hours in order to prevent re-infection. Sanitize all reusable water bottles Zyrtec or Claritin daily . Do not share items with others. Salt water gargles may alleviate some of the throat discomfort. You can take Tylenol or per the package instructions for pain/fever. Amoxicillin as prescribed If your symptoms persist, change or worsen significantly before you can contact your personal physician then please, without delay, go to the emergency department for further evaluation. Follow-up with PCP in 7-10 days or sooner if needed Prescriptions: New amoxicillin 500 mg tablet 500 mg PO Q8H Qty: 21 0RF Follow-up/Referrals: PHYSICIAN,[employer] OPERATOR [Primary Care Provider] - Time of Disposition: 19:27
== END 2022-04-16 19:31 | disposition home or self-care (01) ==
PROVIDERS: Emergency Provider Registered Nurse
DX: O99.511 Diseases of the respiratory system complicating pregnancy, first trimester (principal); Z3A.00 Weeks of gestation of pregnancy not specified; J06.9 Acute upper respiratory infection, unspecified; J02.9 Acute pharyngitis, unspecified
CPT/HCPCS: 87081; 87880; 99213; G0463

== ENCOUNTER 2022-05-17 18:47 | Emergency (ER) | payer OTHER, SELFPAY ==
[2022-05-17] VITALS (11 sets, daily range): BP systolic 102–112; BP diastolic 63–71; PULSE 60–87; RESP 12–17; TEMP 36.7; O2SAT 99–100
--- NOTE | ~2022-05-17 | US_ITS ---
EXAMINATION: US OB transvaginal DATE: 05/17/2022 21:50 INDICATION: Failed . Retained products of conception. TECHNIQUE: Real-time transvaginal pelvic ultrasound was performed. COMPARISON: None. FINDINGS: The uterus measures 8.9 x 5.5 x 6.0 cm. There is a cyst in the endometrial complex with mean diamete r of 2.3 cm. No yolk sac or pole is identified. The endometrial complex measures 3.0 cm in thic kness. The right ovary is not visualized. The left ovary measures 4.0 x 3.5 x 3.8 cm. There is a 3.0 cm hemorrhagic cyst in left ovary. There is no free fluid in the pelvis. IMPRESSION: 1. Thickened endometrial complex with cyst that may be a gestational sac. Given the patient's clinic al history, these findings are suspicious for a failed with retained product of conception. Reviewed, dictated and finalized at location A. R [facility]W OPERATOR IMPRESSION: 1. Thickened endometrial complex with cyst that may be a gestational sac. Give n the patient's clinical history, these findings are suspicious for a failed pr egnancy with retained product of conception.
--- NOTE | 2022-05-17 21:32 | ED.FEMALEGU ---
HPI - Female Genitourinary General Chief complaint: Vaginal Bleeding <Ivis Vaca PA-C - Last Filed: 05/18/22 02:12> Stated complaint: miscarriage last week, still bleeding <Ivis Vaca PA-C - Last Filed: 05/18/22 02:12> Time Seen by Provider: 05/17/22 21:23 <ORESTES Jonas Last Filed: 05/18/22 02:12> History of Present Illness HPI Narrative: Patient is a 26-year-old female here for evaluation of vaginal bleeding over the past 2 weeks after being diagnosed with incomplete . She believes she was about 7 or 8 weeks along. She was given Cytotec by her PCP on 05/06, did not bleed afterwards, then was given another dose on 05/09, followed by 3 days of heavy bleeding. Since then she has been spotting; not enough to saturate a menstrual pad. Reports lower abdominal cramping. No nausea, vomiting, fevers, chills. Patient states that she was unable to schedule the ultrasound until June, which prompted her ED visit. <ORESTES Jonas Last Filed: 05/18/22 02:12> Related Data Allergies/Adverse reactions: Allergies Allergy/AdvReac Type Severity Reaction Status Date / Time No Known Allergies Allergy Verified 04/16/22 18:53 <Ivis Vaca PA-C - Last Filed: 05/18/22 02:12> Review of Systems Review of Systems: Gen: Denies fevers or chills Eyes: Denies eye pain or visual change ENT: Denies congestion Respiratory: Denies shortness of breath or cough CV: Denies chest pain or palpitations GI: Reports lower abdominal cramping. Denies nausea, emesis or diarrhea reports vaginal bleeding. Denies burning, urgency, frequency or hematuria Musculoskeletal: Denies back pain or muscle pain Neuro: Denies numbness, tingling, weakness or focal weakness Skin: Denies rash Except as documented, all other systems reviewed and negative <ORESTES Jonas Last Filed: 05/18/22 02:12> [facility] Past Medical History Medical History: Medical History Anemia affecting GBS (group B Streptococcus carrier), +RV culture, currently Heterozygous MTHFR mutation [id number] Obese Rubella non-immune status, antepartum Vaginal delivery 03/18/2016 8-14 male 10/01/2018 8-9 male <Ivis Vaca PA-C - Last Filed: 05/18/22 02:12> Surgical History Surgical History: Surgical History No pertinent past surgical history <ORESTES Jonas Last Filed: 05/18/22 02:12> Family History Family History: Family History Father Diabetes mellitus Mother No pertinent past medical history <ORESTES Jonas Last Filed: 05/18/22 02:12> Social History Social History: Social History (Updated 04/19/22 @ 11:05 by Kathleen Nowak NP) Smoking status: Never smoker Second hand tobacco smoke exposure: No Alcohol intake: never Substance use: never Substance use type: does not use 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 Head: Normocephalic and atraumatic. EYES: PERRLA/EOMI, conjunctivae clear NOSE: No nasal drainage EARS: External ear normal in appearance THROAT: Oropharynx is clear. Mucous membranes are moist. NECK: Supple. No adenopathy, no masses. RESPIRATORY: Airway patent, respirations nonlabored. Clear to auscultation bilaterally, no rales, rhonchi, wheezing. CARDIOVASCULAR: Regular rate and rhythm without murmurs, rubs, or gallops. : exam pe
[2022-05-17 22:11] LABS: Basophils Percent Auto 0.3 % (0.2-1.2); Eosinophils Absolute Auto 0.1 K/mm3 (0-0.3); Eosinophils Percent Auto 1.1 % (0-4.4); Hematocrit 37.5 % (37.0-47.0); Hemoglobin 13.1 g/dL (12.0-15.0); Immature Granulocyte Absolute 0.02 K/mm3 (0.00-0.031); Immature Granulocyte Percent A 0.3 % (0-0.5); Lymphocytes Absolute Auto 2.55 K/mm3 (0.9-3.2); Lymphocytes Percent Auto 41.1 % (18.3-44.2); Mean Corpuscular HGB Conc 34.9 g/dl (32-36); Mean Corpuscular Volume 88.7 fl (80-100); Mean Platelet Volume 9.6 fl (7.4-10.4); Monocytes Absolute Auto 0.3 K/mm3 (0.1-0.6); Monocytes Percent Auto 4.7 % (2.6-8.5); Neutrophils Absolute Auto 3.3 K/mm3 (1.3-6.7); Neutrophils Percent Auto 52.5 % (45.5-73.1); Platelet Count Result 229 k/mm3 (150-375); Red Blood Count 4.23 M/mm3 (4.2-5.4); White Blood Count 6.2 K/mm3 (4.5-10.0)
== END 2022-05-17 23:51 | disposition home or self-care (01) ==
PROVIDERS: General Practice; Emergency Provider Emergency Medicine; PCP Physician Assistant
DX: N93.9 Abnormal uterine and vaginal bleeding, unspecified (principal); N85.8 Other specified noninflammatory disorders of uterus; E66.9 Obesity, unspecified; Z68.27 Body mass index [BMI] 27.0-27.9, adult; Z86.2 Personal history of diseases of the blood and blood-forming organs and certain disorders involving the immune mechanism
CPT/HCPCS: 36415; 76817; 84702; 85025; 85461; 86850; 86900; 86901; 99284